=== PATIENT | male | born 1965 | race Caucasian/White ===

== ENCOUNTER → 2016-11-24 | Outpatient (CLI) | payer MEDICARE, MEDICAID ==
[~2016-11-24] MED LIST: BACL20TA PO; CIPR-151 PO; DANT50CA PO; METH1TAB55 PO; OXYB5TAB73 PO
== END ==
LOC: NWCC 15:18
PROVIDERS: ATTEND Internal Medicine
DX: L89.023 Pressure ulcer of left elbow, stage 3 (principal); L89.013 Pressure ulcer of right elbow, stage 3; G82.50 Quadriplegia, unspecified; Z99.3 Dependence on wheelchair; B96.89 Other specified bacterial agents as the cause of diseases classified elsewhere
CPT/HCPCS: 11042; 87070; 87075; 87076; 87147; 87181; 87186; 87205; A6021; A6209

== ENCOUNTER → 2016-12-11 | Outpatient (CLI) | payer MEDICARE, MEDICAID | LOC: NWCC 14:45 | PROVIDERS: ATTEND Internal Medicine | DX: L89.023 Pressure ulcer of left elbow, stage 3 (principal); L89.013 Pressure ulcer of right elbow, stage 3; Z99.3 Dependence on wheelchair; G82.50 Quadriplegia, unspecified | CPT/HCPCS: 97597; A6021; A6209 ==

== ENCOUNTER → 2016-12-25 | Outpatient (CLI) | payer MEDICARE, MEDICAID | LOC: NWCC 15:20 | PROVIDERS: ATTEND Internal Medicine | DX: L89.023 Pressure ulcer of left elbow, stage 3 (principal); L89.013 Pressure ulcer of right elbow, stage 3; G82.50 Quadriplegia, unspecified; Z99.3 Dependence on wheelchair; L53.9 Erythematous condition, unspecified | CPT/HCPCS: 11042; A6209 ==

== ENCOUNTER → 2017-01-08 | Outpatient (CLI) | payer MEDICARE, MEDICAID | LOC: NWCC 15:15 | PROVIDERS: ATTEND Internal Medicine | DX: L89.023 Pressure ulcer of left elbow, stage 3 (principal); L89.013 Pressure ulcer of right elbow, stage 3; G82.50 Quadriplegia, unspecified; Z99.3 Dependence on wheelchair | CPT/HCPCS: 11042 ==